=== PATIENT | female | born 1965 | race Caucasian/White ===

== ENCOUNTER 2020-01-01 20:04 | Emergency (ER) | payer BC ==
[2020-01-01 20:31] VITALS: BP 109/75; PULSE 80; TEMP 97.9; BMI 31.9
--- NOTE | 2020-01-01 23:10 | PDOC ---
Documentation entered by Meenakshi Decker SCRIBE, acting as scribe for Eddi Ivey MD. Eddi Ivey MD: This documentation has been prepared by the Jeronimo lopez Adrianna, SCRIBE, under my direction and personally reviewed by me in its entirety. I confirm that the documentation accurately reflects all work, treatment, procedures, and medical decision making performed by me. History of Present Illness - General Chief Complaint: Edema Stated Complaint: FACIAL SWELLING Time Seen by Provider: 01/01/20 20:11 History Source: Patient Exam Limitations: No Limitations - History of Present Illness Initial Comments: The patient is a 54 year old female, with no significant PMH, who presents to the ED for evaluation of facial swelling for 2 days. Patient notes that two days ago, the left side of her face felt funny. The next morning, the patient woke up to a significant amount of swelling and redness of her left cheek and left lips. She notes the left side of her face felt tight, slightly tender, and intermittently warm to touch. Patient was seen at an UC yesterday for this complaint, and was placed on amoxicillin. She notes her swelling became significantly better following 4 doses of the antibiotic since yesterday. She presents today, as the UC advised she follow up at an ER. PAST MEDICAL HISTORY: no significant history PAST SURGICAL HISTORY: no significant history FAMILY HISTORY: no pertinent history SOCIAL HISTORY: Pt lives with family and is employed. MEDICATIONS: reviewed ALLERGIES: As per nursing notes ROS General: No fevers or chills, no weakness, no weight loss HEENT: +Left-sided facial swelling, tightness, warmth, redness, and tenderness. No change in vision. No sore throat,. No ear pain CardioVascular: No chest pain or shortness of breath Respiratory:No cough, or wheezing. Gastrointestinal: no nausea, vomiting, diarrhea or constipation, No rectal bleeding Genitourinary: No dysuria, hematuria, or frequency Musculoskeletal: No joint or muscle pain or swelling Neurologic: No headache, vertigo, dizziness or loss of consciousness Psychiatric: nor depression Skin: No rashes or easy bruising Endocrine: no increased thirst or abnormal weight change Allergic: no skin or latex allergy All other systems reviewed and normal Physical Exam: GENERAL: The patient is awake, alert, and fully oriented, in no acute distress. HEAD: +Mild swelling and erythema of the left side of the face. Exam of the teeth demonstrates no obvious dental caries, however there is an area on her left upper gum with some tenderness, erythema, and swelling. No palpable collection or abscess. EYES: Pupils equal, round and reactive to light, extraocular movements intact, sclera anicteric, conjunctiva clear. EXTREMITIES: Normal range of motion, no edema. NEUROLOGICAL: Normal speech, normal gait. PSYCH: Normal mood, normal affect. SKIN: Warm, Dry, normal turgor, no rashes or lesions noted. Assessment and plan: This is a 54-year-old female who had swelling of her left side of her face 2 days ago. Patient went to an urgent care center and was started on antibiotics. Patient said she is markedly improved but wanted to just come in and get it checked for reassurance. Patient was reassured that everything is improving and that she should follow-up with a dentist as this most likely is secondary to a underlying dental issue. Patient discharged home. 01/01/20 20:27 Past History - Past Medical History Allergies/Adverse Reactions: Allergies Allergy/AdvReac Type Severity Reaction Status Date / Time No Known Allergies Allergy Unverified 01/01/20 20:05 Home Medications: Ambulatory Orders Amoxicillin - [Amoxicillin 500mg Capsule -] 500 mg PO BID 01/01/20 Levothyroxine [Synthroid -] 150 mcg PO DAILY 01/01/20 COPD: No Thyroid Disease: Yes - Psycho Social/Smoking Cessation Hx Smoking History: Current every day smoker Number of Cigarettes Smoked Daily: 10 Information on smoking cessation initiated: Yes *Physical Exam - Vital Signs Last Vital Signs Temp Pulse Resp BP Pulse Ox 97.9 F 80 16 109/75 96 01/01/20 20:08 01/01/20 20:08 01/01/20 20:08 01/01/20 20:08 01/01/20 20:08 Discharge - Discharge Information Problems reviewed: Yes Clinical Impression/Diagnosis: Left facial swelling Condition: Stable Disposition: HOME - Admission No - Follow up/Referral - Patient Discharge Instructions Additional Instructions: Your symptoms are most likely secondary to a dental issue. Is important you follow-up with a dentist next week. In the meantime continue to take your antibiotics as prescribed. Return to the emergency department immediately with ANY new, persistent or worsening symptoms. Continue any medications as previously prescribed by your physician. You should follow up with your primary doctor as soon as possible regarding today's emergency department visit. . Please make sure your doctor reviews the results of your emergency evaluation. Thank you for coming to the Emergency Department today for your care. It was a pleasure to see you today. Please note that your evaluation is INCOMPLETE until you follow-up with your doctor. - Post Discharge Activity
== END 2020-01-01 20:24 | disposition home or self-care (01) ==
LOC: FER 20:04
DX: R22.0 Localized swelling, mass and lump, head (principal); F17.210 Nicotine dependence, cigarettes, uncomplicated; E07.9 Disorder of thyroid, unspecified
CPT/HCPCS: 99282-25